=== PATIENT | female | born 1995 | race Caucasian/White ===

== ENCOUNTER 2022-06-07 03:25 | Emergency (ER) | payer OTHER ==
--- NOTE | 2022-06-07 03:41 | ED Physician Documentation ---
PD HPI HEADACHE - Stated complaint Stated Complaint: L SIDE MIGRAINE, LEFT EAR PAIN - Chief complaint Chief Complaint: Neuro - History obtained from History obtained from: Patient - History of Present Illness Timing - onset: Yesterday Worst headache ever?: No: Worst headache ever? Location: Front, Left Associated symptoms: Nausea. No: Stiff neck, Vomiting, Weakness, Numbness, Vision changes Improved by: Dark room Worsened by: Light Similar symptoms before: Diagnosis (migraine) Recently seen: Not recently seen - Additional information Additional information: HPI from patient. Patient c/o left frontal headache since yesterday which she feels is consistent with her previous migraine headaches. She has been diagnosed with migraines; she takes amytriptylene QPM as preventive measure vs migraines, and has had good results with PO sumatriptan. Unfortunately, she has run out of sumatriptan. She feels this migraine is more persistent and severe than her typical migraine. Denies chance of . Review of Systems Eyes: reports: Photophobia GI: reports: Nausea. denies: Vomiting Neurologic: reports: Headache. denies: Focal weakness, Numbness, Altered mental status, Head injury PD PAST MEDICAL HISTORY - Past Medical History Past Medical History: Yes Neuro: Migraines - Present Medications Home Medications: Ambulatory Orders Medication Instructions Recorded Confirmed Promethazine [Phenergan] 25 mg PO Q6H PRN #10 tab 06/07/22 SUMAtriptan [Imitrex] 25 mg PO ONCE PRN #30 tablet 06/07/22 - Allergies Allergies/Adverse Reactions: Allergies Allergy/AdvReac Type Severity Reaction Status Date / Time No Known Drug Allergies Allergy Verified 06/07/22 03:33 PD ED PE NORMAL - Vitals Vital signs reviewed: Yes - General General: Alert and oriented X 3, Well developed/nourished, Other (appears uncomfortable, keeps eyes closed for comfort (but opens eyes on command, follows all commands and is pleasant and conversant)) - HEENT HEENT: PERRL, EOMI - Neck Neck: Supple, no meningeal sign - Cardiac Cardiac: RRR, No murmur - Respiratory Respiratory: No respiratory distress, Clear bilaterally - Neuro Neuro: Alert and oriented X 3, 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 Options discussed included SQ sumatriptan, toradol/benadryl/phenergan combination, IM morphine, IM dilaudid. In discussing risks and benefits of these different approaches, mutual decision made to try IM toradol, IM phenergan, PO benadryl. I reevaluated her after these medications had adequate time for effect, and she is in NAD, awake and alert and reports good symptom relief. She says she is ready to be discharged. She says she might have sumatriptan refills at her pharmacy but is not confident about this and thus I e-prescribed this medication as well as phenergan. Return precautions discussed. Departure - Departure Disposition: 01 Home, Self Care Clinical Impression: Migraine Condition: Good Instructions: ED Headache Migraine Prescriptions: SUMAtriptan [Imitrex] 25 mg PO ONCE PRN #30 tablet PRN Reason: Migraine Promethazine [Phenergan] 25 mg PO Q6H PRN #10 tab PRN Reason: Nausea / Vomiting Comments: Prescriptions for sumatriptan (migraine medication) and Phenergan (antinausea medication) have been electronically submitted to the [facility] in [place]. Discharge Date/Time: 06/07/22 05:26
[2022-06-07] MEDS ORDERED: KETOROLAC 60 MG/2 ML VIAL IM STA (04:05)
[2022-06-07] MEDS ORDERED: PROMETHAZINE 25 MG/1 ML VIAL IM STA (04:05)
[2022-06-07] MEDS ORDERED: diphenhydrAMINE 25 MG CAPSULE PO STA (04:05)
[2022-06-07 05:26] VITALS: BP 139/99
== END 2022-06-07 05:26 | disposition home or self-care (01) ==
LOC: ED 03:25
DX: G43.909 Migraine, unspecified, not intractable, without status migrainosus (principal)
CPT/HCPCS: 96372; 99283; A9270